=== PATIENT | male | born 1985 ===

== ENCOUNTER 2018-03-01 14:40 | Emergency (ER) | payer OTHER ==
--- NOTE | 2018-03-01 16:49 | RAD ---
Indication: Lateral RIGHT ankle pain following twisting injury yesterday. Comparison: No relevant prior exams available on the [facility] [place]. Technique: AP, mortise, and lateral views RIGHT ankle. Report: Mild to moderate soft tissue swelling over the lateral malleolus. Suggestion of small talocrural joint effusion. Negative for fracture or malalignment. IMPRESSION: Negative for fracture.
--- NOTE | 2018-03-01 18:22 | ED ---
Lower Extremity - HPI Summary HPI Summary: 33 yo WM c/o right ankle pain after rolling it in a pothole yesterday, hard time bearing weight - History of Current Complaint Chief Complaint: UCLowerExtremity Stated Complaint: ANKLE INJURY Time Seen by Provider: 03/01/18 16:54 Hx Obtained From: Patient Hx From Patient Unobtainable Due To: Other Mechanism Of Injury: Twisted Onset/Duration: Days Severity Initially: Moderate Severity Currently: Moderate Pain Intensity: 2 Timing: Constant Character Of Pain: Sharp Associated Signs And Symptoms: Positive: Swelling, Weakness Aggravating Factor(s): Standing, Ambulation, Weight Bearing Alleviating Factor(s): Rest Able to Bear Weight: Yes - but minimal - Allergies/Home Medications Allergies/Adverse Reactions: Allergies Allergy/AdvReac Type Severity Reaction Status Date / Time No Known Allergies Allergy Verified 03/01/18 16:00 Home Medications: Home Medications Cetirizine HCl/Pseudoephedrine [Zyrtec-D Tablet] 03/01/18 [History] Estradiol [Estrace] 2 mg PO 03/01/18 [History] Spironolactone 03/01/18 [History] PMH/Surg Hx/FS Hx/Imm Hx Previously Healthy: Yes - Surgical History Surgery Procedure, Year, and Place: wisdom teeth; tonsils and adenoids Infectious Disease History: No Infectious Disease History: Denies: Traveled Outside the [place] in Last 30 Days - Social History Alcohol Use: Occasionally Substance Use Type: Reports: Marijuana Smoking Status (MU): Never Smoked Tobacco Review of Systems Constitutional: Negative Eyes: Negative ENT: Negative Cardiovascular: Negative Respiratory: Negative Gastrointestinal: Negative Genitourinary: Negative Musculoskeletal: Other Positive: Edema, Other - right ankle pain Skin: Negative All Other Systems Reviewed And Are Negative: Yes Physical Exam Triage Information Reviewed: Yes Vital Signs On Initial Exam: Initial Vitals Temp Pulse Resp BP Pulse Ox 35.7 C 82 16 139/77 100 03/01/18 15:55 03/01/18 15:55 03/01/18 15:55 03/01/18 15:55 03/01/18 15:55 Appearance: Positive: Well-Appearing Skin: Positive: Warm Head/Face: Positive: Normal Head/Face Inspection Eyes: Positive: Normal ENT: Positive: Normal ENT inspection Cardiovascular: Positive: Normal Musculoskeletal: Positive: Limited @ - right ankle swelling ROM limted secondary to pain Neurological: Positive: Normal Psychiatric: Positive: Normal Diagnostics - Vital Signs Vital Signs Temp Pulse Resp BP Pulse Ox 03/01/18 15:55 35.7 C 82 16 139/77 100 - Laboratory Lab Statement: Any lab studies that have been ordered have been reviewed, and results considered in the medical decision making process. Lower Extremity Course/Dx - Course Course Of Treatment: XR of right ankle neg for fx or dislocaiotn - Diagnoses Provider Diagnoses: Right ankle sprain Discharge - Sign-Out/Discharge Documenting (check all that apply): Discharge/Admit/Transfer - Discharge Plan Condition: Stable Disposition: HOME Patient Education Materials: Ankle Sprain (ED) Referrals: No Primary Care Phys,NOPCP [Primary Care Provider] - Additional Instructions: Rest, ICE, Elevation and Antiinflammatories as needed. Take off boot at night, wear it for 1-2 weeks for ambulation support If pain continues in spite of above treatment consult with Orthopedics - Billing Disposition and Condition Condition: STABLE Disposition: HOME
== END 2018-03-01 18:35 | disposition home or self-care (01) ==
LOC: UCEAST 14:40
DX: S93.401A Sprain of unspecified ligament of right ankle, initial encounter (principal); X50.9XXA Other and unspecified overexertion or strenuous movements or postures, initial encounter; Y92.9 Unspecified place or not applicable
CPT/HCPCS: 99203; G0463